=== PATIENT | male | born 1965 | race Two or more races ===

== ENCOUNTER 2023-06-23 09:16 | Emergency (ER) | payer OTHER ==
[~2023-06-23] VITALS: Ht 180.3 cm; Wt 90.7 kg
[2023-06-23] MEDS ORDERED: TELMISARTAN80 MG PO (09:39)
[2023-06-23] MEDS ORDERED: ROSUVASTATIN CA10 MG PO (09:39)
[2023-06-23 13:16] LABS: HEMATOCRIT 44.6 % (39.0-48.0); HEMOGLOBIN 15.2 g/dL (13-16.00); MEAN CELL VOLUME 86.2 fL (80.0-100.00); MEAN CORPUSCULAR HEMOGLOBIN 29.4 pg (27.00-32.0); MEAN CORPUSCULAR HGB CONC 34.2 g/dl (32.0-36.0); PLATELET COUNT 233 K/uL (150-450); RED BLOOD COUNT 5.17 M/uL (4.00-6.00); RED CELL DISTRIBUTION WIDTH 15.6 % (11.5-14.5)
== END 2023-06-23 13:30 | disposition home or self-care (01) ==
LOC: ER 09:17
PROVIDERS: Emergency Medicine
DX: K64.9 Unspecified hemorrhoids (principal)

== ENCOUNTER 2023-07-09 05:51 | Day surgery (SDC) | payer OTHER ==
[~2023-07-09] VITALS: Ht 180.3 cm; Wt 83.9 kg
[~2023-07-09 05:51] MED LIST: ROSUVASTATIN CA10 MG PO; TELMISARTAN80 MG PO
[2023-07-09] MEDS ORDERED: OXYC1TAB9 PO (08:15)
== END 2023-07-09 15:55 | disposition home or self-care (01) ==
LOC: CIR.AMB 05:51
PROVIDERS: ATTEND Surgery
DX: K64.2 Third degree hemorrhoids (principal); K62.5 Hemorrhage of anus and rectum; K64.4 Residual hemorrhoidal skin tags; K64.8 Other hemorrhoids; K64.5 Perianal venous thrombosis; I10 Essential (primary) hypertension; Z20.822 Contact with and (suspected) exposure to COVID-19; Z88.6 Allergy status to analgesic agent

== ENCOUNTER 2023-07-21 15:17 | Inpatient (IN) | payer OTHER ==
[~2023-07-21] VITALS: Ht 180.3 cm; Wt 83.0 kg
[~2023-07-21 15:17] MED LIST changes: +OXYC1TAB9 PO
[2023-07-21 15:41] LABS: HEMATOCRIT 35.5 % (39.0-48.0); MEAN CELL VOLUME 86.9 fL (80.0-100.00); MEAN CORPUSCULAR HEMOGLOBIN 29.3 pg (27.00-32.0); MEAN CORPUSCULAR HGB CONC 33.7 g/dl (32.0-36.0); PLATELET COUNT 331 K/uL (150-450); RED BLOOD COUNT 4.09 M/uL (4.00-6.00); RED CELL DISTRIBUTION WIDTH 15.7 % (11.5-14.5)
--- NOTE | 2023-07-21 15:41 | NUR ---
SE RECIBE PACIENTE ALERTA, ORIENTADO X 3 ESFERAS, PALIDO, SUDOROSO EN AMBULANCIA EN COMPANIA DE PARAMEDICOS Y FAMILIAR. FAMILIAR INDICA QUE PACIENTE COMENZO CON SANGRADO RECTAL Y SUFRIO UN SINCOPE. REFIERE QUE PTE FUE OPERADO DE HEMORROIDES POR DR.RODRIGUEZ MAYS EL 07/09. SE UBICA A PACIENTE EN AREA DE DOLOR DE PECHO, SE CONECTA A MONITOR CARDIACO, OXIMETRIA DE PULSO Y SE COLOCA CANULA NASAL. SE REALIZA EKG Y SE PRESENTA A .
[2023-07-21 16:07] LABS: ALBUMIN 3.1 gm/dL (3.4-5.0); BILIRUBIN TOTAL 0.56 mg/dL (0.3-1.2); CALCIUM 8.6 mg/dL (8.5-10.1); CREATININE SERUM 1.71 mg/dL (0.70-1.30); GFR 41.32; GLOBULINA 3.3 G/DL (2.4-3.5); POTASSIUM 3.61 mEq/L (3.5-5.1); TOTAL PROTEIN 6.4 gm/dL (6.4-8.2)
[2023-07-21 16:08] LABS: INR 1.14; PARTIAL THROMBOPLASTIN TIME 23.9 SECONDS (22.0-34.0); PROTHROMBIN TIME 11.9 SECONDS (9.0-11.5)
--- NOTE | 2023-07-21 16:30 | NUR ---
PACIENTE EVALUADO POR DR. NATION QUIEN ORDENA TRATAMIENTO. SE ORIENTA PACIENTE Y FAMILIAR SOBRE TRATAMIENTO, SE SHAYY MUESTARS DE LABORATORIO BAJO MEDIDAS ASEPTICAS. SE OBSERVA PACIENTE HIPOTENSO SE NOTIFICA A CHAPIS GUEVARA QUIEN ORDENA ADMINISTRAR 2 LITROS DE 0.9% NSS FULL DRIP. SE CANALIZA PACIENTE BAJO MEDIDAS ASEPTICAS. SE COLOCA MANTA TERMICA. SE MANTIENE PACIENTE CONECTADO A MONITOR CARDIACO Y OXIMETRIA DE PULSO EN CAMA BAJA, BARANDAS ELEVADAS POR PRECAUCION.
[2023-07-21 16:55] LABS: HEMATOCRIT 29.4 % (39.0-48.0); HEMOGLOBIN 10.1 g/dL (13-16.00); MEAN CELL VOLUME 86.1 fL (80.0-100.00); MEAN CORPUSCULAR HEMOGLOBIN 29.7 pg (27.00-32.0); MEAN CORPUSCULAR HGB CONC 34.5 g/dl (32.0-36.0); PLATELET COUNT 228 K/uL (150-450); RED BLOOD COUNT 3.41 M/uL (4.00-6.00); RED CELL DISTRIBUTION WIDTH 15.4 % (11.5-14.5)
--- NOTE | 2023-07-21 17:46 | NUR ---
DR. NAM EVALUA PACIENTE QUIEN ORDENA REPETIR CBC, CT ABDOMINOPELVICO Y DRIP DE 0.9% NSS BAJANDO A 160 MLS/HR. SE TERRI MUESTRA DE FELIPE BAJO MEDIDAS ASEPTICAS, SE NOTIFICA A PERSONAL DE CENTRO DE IMAGENES SOBRE TRATAMIENTO PENDIENTE. SE ADMINISTRA MEDICAMENTO RENAE ORDEN MEDICA.
[2023-07-21 18:09] LABS: HEMATOCRIT 31.3 % (39.0-48.0); HEMOGLOBIN 10.3 g/dL (13-16.00); MEAN CELL VOLUME 87.8 fL (80.0-100.00); MEAN CORPUSCULAR HEMOGLOBIN 28.9 pg (27.00-32.0); MEAN CORPUSCULAR HGB CONC 32.9 g/dl (32.0-36.0); PLATELET COUNT 250 K/uL (150-450); RED BLOOD COUNT 3.57 M/uL (4.00-6.00); RED CELL DISTRIBUTION WIDTH 15.8 % (11.5-14.5)
[2023-07-21 18:20] LABS: CALCIUM 7.8 mg/dL (8.5-10.1); CREATININE SERUM 1.51 mg/dL (0.70-1.30); GFR 47.7; POTASSIUM 4.87 mEq/L (3.5-5.1)
[2023-07-21 20:12] LABS: INR 1.12; PARTIAL THROMBOPLASTIN TIME 25.4 SECONDS (22.0-34.0); PROTHROMBIN TIME 11.7 SECONDS (9.0-11.5)
[2023-07-21 20:47] LABS: URINE APPEARANCE Clear; URINE BILIRRUBIN Negative (NEGATIVE); URINE BLOOD Negative; URINE COLOR Yellow; URINE GLUCOSE Negative (NEGATIVE); URINE LEUKOCYTE Negative; URINE NITRATE Negative; URINE PROTEIN Trace (NEGATIVE); URINE UROBILINOGEN 0.2 E.U./dl
[2023-07-21 20:49] LABS: URINE BACTERIA 54.1 uL (0.0-1933); URINE RBC 2.4 uL (0.0-20.8); URINE WBC 21.6 uL (0.0-23.2)
[2023-07-22 07:06] LABS: HEMATOCRIT 27.6 % (39.0-48.0); HEMOGLOBIN 9.6 g/dL (13-16.00); MEAN CELL VOLUME 86.7 fL (80.0-100.00); MEAN CORPUSCULAR HEMOGLOBIN 30.1 pg (27.00-32.0); MEAN CORPUSCULAR HGB CONC 34.7 g/dl (32.0-36.0); PLATELET COUNT 218 K/uL (150-450); RED BLOOD COUNT 3.18 M/uL (4.00-6.00); RED CELL DISTRIBUTION WIDTH 15.5 % (11.5-14.5)
[2023-07-22 07:17] LABS: ALBUMIN 2.6 gm/dL (3.4-5.0); BILIRUBIN TOTAL 0.55 mg/dL (0.3-1.2); CALCIUM 7.9 mg/dL (8.5-10.1); CREATININE SERUM 1.22 mg/dL (0.70-1.30); GFR 61.01; GLOBULINA 2.5 G/DL (2.4-3.5); POTASSIUM 5.1 mEq/L (3.5-5.1); TOTAL PROTEIN 5.1 gm/dL (6.4-8.2)
[2023-07-23 07:01] LABS: HEMATOCRIT 25.8 % (39.0-48.0); MEAN CELL VOLUME 86.5 fL (80.0-100.00); MEAN CORPUSCULAR HGB CONC 35.3 g/dl (32.0-36.0); PLATELET COUNT 207 K/uL (150-450); RED BLOOD COUNT 2.98 M/uL (4.00-6.00); RED CELL DISTRIBUTION WIDTH 15.6 % (11.5-14.5)
[2023-07-23 07:10] LABS: CALCIUM 8.2 mg/dL (8.5-10.1); CHOL HDL RATIO 2.6 (0-5.0); CREATININE SERUM 1.14 mg/dL (0.70-1.30); GFR 65.98; POTASSIUM 4.45 mEq/L (3.5-5.1)
[2023-07-23 07:17] LABS: HEMOGLOBIN 9.1 g/dL (13-16.00); MEAN CORPUSCULAR HEMOGLOBIN 30.5 pg (27.00-32.0)
[2023-07-24] MEDS ORDERED: AMOX-CLAV 875-1 EACH PO (16:12)
[2023-07-24] MEDS ORDERED: INTEGRA PLUS C1 EACH PO (16:12)
== END 2023-07-24 16:49 | disposition home or self-care (01) | DRG 394 ==
LOC: ER 15:17 → SURH 20:31
PROVIDERS: Emergency Medicine; General Practice; ADMIT Surgery; ATTEND Surgery
PROC: BW21ZZZ Computerized Tomography (CT Scan) of Abdomen and Pelvis (ICD-10-PCS; principal; 2023-07-21)
PROC: BW28ZZZ Computerized Tomography (CT Scan) of Head (ICD-10-PCS; 2023-07-21)
DX: K62.89 Other specified diseases of anus and rectum (principal); N17.8 Other acute kidney failure; I95.9 Hypotension, unspecified; E78.49 Other hyperlipidemia; I10 Essential (primary) hypertension; K59.09 Other constipation

== ENCOUNTER 2023-07-27 15:30 | Inpatient (IN) | payer OTHER ==
[~2023-07-27] VITALS: Ht 180.3 cm; Wt 81.6 kg
[~2023-07-27 15:30] MED LIST changes: +AMOX-CLAV 875-1 EACH PO; +INTEGRA PLUS C1 EACH PO
[2023-07-27 17:31] LABS: HEMATOCRIT 26.3 % (39.0-48.0); MEAN CELL VOLUME 87.8 fL (80.0-100.00); MEAN CORPUSCULAR HGB CONC 34.1 g/dl (32.0-36.0); PLATELET COUNT 374 K/uL (150-450)
[2023-07-27 18:09] LABS: INR 1.09; PARTIAL THROMBOPLASTIN TIME 23.5 SECONDS (22.0-34.0); PROTHROMBIN TIME 11.4 SECONDS (9.0-11.5)
[2023-07-27 18:13] LABS: CALCIUM 8.5 mg/dL (8.5-10.1); CREATININE SERUM 1.92 mg/dL (0.70-1.30); GFR 36.15; POTASSIUM 3.92 mEq/L (3.5-5.1)
[2023-07-27 18:50] LABS: URINE APPEARANCE Clear; URINE BILIRRUBIN Negative (NEGATIVE); URINE BLOOD Negative; URINE COLOR Yellow; URINE GLUCOSE Negative (NEGATIVE); URINE LEUKOCYTE Negative; URINE NITRATE Negative; URINE PROTEIN Trace (NEGATIVE); URINE UROBILINOGEN 0.2 E.U./dl
[2023-07-27 18:54] LABS: URINE BACTERIA 15.1 uL (0.0-1933); URINE EPITHELIAL CELLS 2.9 uL (0.0-38.8); URINE RBC 3.8 uL (0.0-20.8); URINE WBC 2.4 uL (0.0-23.2)
[2023-07-27 19:14] LABS: URINE SPERM FEW
[2023-07-29 07:14] LABS: MEAN CELL VOLUME 88.2 fL (80.0-100.00); MEAN CORPUSCULAR HGB CONC 35.4 g/dl (32.0-36.0); PLATELET COUNT 228 K/uL (150-450); RED BLOOD COUNT 1.87 M/uL (4.00-6.00); RED CELL DISTRIBUTION WIDTH 16.9 % (11.5-14.5)
[2023-07-29 07:23] LABS: HEMATOCRIT 16.5 % (39.0-48.0); HEMOGLOBIN 5.8 g/dL (13-16.00)
[2023-07-29 07:52] LABS: ALBUMIN 2.3 gm/dL (3.4-5.0); ALKALINE PHOSPHATASE 38 U/L (50-136); ALT/SGPT 10 U/L (12-78); ANION GAP 6 (10.0-20.0); AST/SGOT 9 U/L (15-37); BILIRUBIN TOTAL 0.31 mg/dL (0.3-1.2); BLOOD UREA NITROGEN 13 mg/dL (7-18); BUN CREA RATIO 12 (7.0-25.0); CALCIUM 7.7 mg/dL (8.5-10.1); CARBON DIOXIDE 26 mEq/L (21-32); CHLORIDE 113 mmol/L (98-107); CREATININE SERUM 1.05 mg/dL (0.70-1.30); GFR 72.54; GLOBULINA 2.4 G/DL (2.4-3.5); GLUCOSE FASTING 84 mg/dL (65-100); OSMOLALITY SERUM 281 MOSM/KG (275-295); PHOSPHOROUS 2.7 mg/dL (2.5-4.9); POTASSIUM 4.28 mEq/L (3.5-5.1); SODIUM 141 mmol/L (136-145); TOTAL PROTEIN 4.7 gm/dL (6.4-8.2)
[2023-07-29 07:54] LABS: C-REACTIVE PROTEIN < 0.29 MG/DL (0.00-0.29)
[2023-07-30 12:09] LABS: HEMATOCRIT 30.9 % (39.0-48.0); HEMOGLOBIN 10.2 g/dL (13-16.00); MEAN CORPUSCULAR HEMOGLOBIN 29.1 pg (27.00-32.0); MEAN CORPUSCULAR HGB CONC 33.1 g/dl (32.0-36.0); PLATELET COUNT 333 K/uL (150-450); RED BLOOD COUNT 3.51 M/uL (4.00-6.00); RED CELL DISTRIBUTION WIDTH 15.6 % (11.5-14.5)
[2023-07-31 11:36] LABS: MEAN CORPUSCULAR HGB CONC 34.4 g/dl (32.0-36.0); PLATELET COUNT 207 K/uL (150-450); RED CELL DISTRIBUTION WIDTH 17.3 % (11.5-14.5)
[2023-07-31 11:42] LABS: MEAN CORPUSCULAR HEMOGLOBIN 28.9 pg (27.00-32.0)
[2023-07-31 11:43] LABS: HEMATOCRIT 23.5 % (39.0-48.0)
[2023-07-31 11:44] LABS: HEMOGLOBIN 8.1 g/dL (13-16.00)
[2023-07-31 11:50] LABS: CALCIUM 7.6 mg/dL (8.5-10.1); CREATININE SERUM 1.09 mg/dL (0.70-1.30); GFR 69.48; POTASSIUM 4.21 mEq/L (3.5-5.1)
[2023-07-31 18:43] LABS: MEAN CELL VOLUME 84.6 fL (80.0-100.00); MEAN CORPUSCULAR HGB CONC 33.9 g/dl (32.0-36.0); PLATELET COUNT 216 K/uL (150-450); RED BLOOD COUNT 2.71 M/uL (4.00-6.00); RED CELL DISTRIBUTION WIDTH 17.5 % (11.5-14.5)
[2023-07-31 18:50] LABS: HEMOGLOBIN 7.8 g/dL (13-16.00); MEAN CORPUSCULAR HEMOGLOBIN 28.7 pg (27.00-32.0)
[2023-08-01 07:54] LABS: MEAN CELL VOLUME 84.2 fL (80.0-100.00); MEAN CORPUSCULAR HGB CONC 34.6 g/dl (32.0-36.0); PLATELET COUNT 188 K/uL (150-450); RED BLOOD COUNT 2.36 M/uL (4.00-6.00); RED CELL DISTRIBUTION WIDTH 17.8 % (11.5-14.5)
[2023-08-01 08:18] LABS: MEAN CORPUSCULAR HEMOGLOBIN 29.2 pg (27.00-32.0)
[2023-08-01 08:19] LABS: HEMATOCRIT 19.9 % (39.0-48.0); HEMOGLOBIN 6.9 g/dL (13-16.00)
[2023-08-02 07:54] LABS: HEMATOCRIT 23.7 % (39.0-48.0); MEAN CELL VOLUME 83.8 fL (80.0-100.00); MEAN CORPUSCULAR HGB CONC 35.1 g/dl (32.0-36.0); PLATELET COUNT 184 K/uL (150-450); RED BLOOD COUNT 2.83 M/uL (4.00-6.00)
[2023-08-02 07:55] LABS: HEMOGLOBIN 8.3 g/dL (13-16.00); MEAN CORPUSCULAR HEMOGLOBIN 29.3 pg (27.00-32.0)
[2023-08-04 06:33] LABS: HEMATOCRIT 25.5 % (39.0-48.0); MEAN CELL VOLUME 85.8 fL (80.0-100.00); MEAN CORPUSCULAR HGB CONC 34.3 g/dl (32.0-36.0); PLATELET COUNT 216 K/uL (150-450); RED BLOOD COUNT 2.97 M/uL (4.00-6.00); RED CELL DISTRIBUTION WIDTH 17.5 % (11.5-14.5)
[2023-08-04 06:35] LABS: HEMOGLOBIN 8.8 g/dL (13-16.00); MEAN CORPUSCULAR HEMOGLOBIN 29.6 pg (27.00-32.0)
[2023-08-04 06:56] LABS: ALBUMIN 2.3 gm/dL (3.4-5.0); BILIRUBIN TOTAL 0.32 mg/dL (0.3-1.2); CALCIUM 7.8 mg/dL (8.5-10.1); CREATININE SERUM 1.07 mg/dL (0.70-1.30); GFR 70.98; GLOBULINA 2.4 G/DL (2.4-3.5); MAGNESIUM 1.8 mg/dL (1.8-2.4); PHOSPHOROUS 3.6 mg/dL (2.5-4.9); POTASSIUM 3.45 mEq/L (3.5-5.1); TOTAL PROTEIN 4.7 gm/dL (6.4-8.2)
[2023-08-04 07:08] LABS: C-REACTIVE PROTEIN 0.98 MG/DL (0.00-0.29)
[2023-08-04] MEDS ORDERED: INTEGRA F CAPS1 EACH PO (13:52)
[2023-08-04] MEDS ORDERED: VANCOMYCIN HCL1 GM PO (13:55)
== END 2023-08-04 17:29 | disposition home or self-care (01) | DRG 357 ==
LOC: ER 15:30 → SURH 22:48
PROVIDERS: General Practice; Internal Medicine; Internal Medicine Infectious Disease; ADMIT Surgery; ATTEND Surgery
PROC: 0W3 Anatomical Regions, General, Control (ICD-10-PCS; 2023-07-30)
PROC: 0DJD8ZZ Inspection of Lower Intestinal Tract, Via Natural or Artificial Opening Endoscopic (ICD-10-PCS; principal; 2023-07-30 13:00)
DX: K62.5 Hemorrhage of anus and rectum (principal); N17.9 Acute kidney failure, unspecified; K62.89 Other specified diseases of anus and rectum; I95.9 Hypotension, unspecified; D64.9 Anemia, unspecified

== ENCOUNTER 2023-09-09 17:54 | Emergency (ER) | payer OTHER ==
[~2023-09-09] VITALS: Ht 180.3 cm; Wt 83.5 kg
[~2023-09-09 17:54] MED LIST changes: +INTEGRA F CAPS1 EACH PO; +VANCOMYCIN HCL1 GM PO
[2023-09-09] MEDS ORDERED: MINERAL OIL HEAV1 ML PO (21:57)
== END 2023-09-09 22:15 | disposition home or self-care (01) ==
LOC: ER 17:54
DX: K59.00 Constipation, unspecified (principal)